=== PATIENT | male | born 1990 | race Caucasian/White ===

== ENCOUNTER 2020-08-23 04:21 | Emergency (ER) | payer OTHER ==
[~2020-08-23] VITALS: Ht 180.3 cm; Wt 81.2 kg
--- NOTE | 2020-08-23 04:34 | PHYS DOC ---
Past History Past Medical History: No Pertinent History Past Surgical History: No Surgical History Smoking: Cigarettes Alcohol Use: Rarely Adult General Chief Complaint Chief Complaint: CHEST PAIN HPI HPI Patient is a 29-year-old male who presents with chest pain. Onset was 1 hour prior to arrival and awoke patient from sleep. Patient reports focal substernal chest pain without radiation that was initially 8/10 in severity. Patient described pain as sharp. Nothing known makes better or worse. Patient has history of acid reflux and thought this might have been the cause, patient drank a glass of milk and took daily GERD medications without significant relief prompting him to visit our ER for evaluation. Patient has never had an episode of chest pain like this. Patient reports chest pain has significantly improved since onset and is only causing mild discomfort at present. 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 No fever, URI-like symptoms, hemoptysis, prolonged sedentary state, long distance travel or travel to exotic places, no animal or insect bites known, no family history of cardiac abnormalities, patient does admit to daily cigarette abuse Review of Systems Review of Systems Fourteen body systems of review of systems have been reviewed. See HPI for pertinent positives and negative responses, other alexander all other systems are negative, non-pertinent or non-contributory Physical Exam Physical Exam Constitutional: Well developed, well nourished, no acute distress, non-toxic appearance. HENT: Normocephalic, atraumatic, bilateral external ears normal, oropharynx moist, no oral exudates, nose normal. Eyes: PERRLA, EOMI, conjunctiva normal, no discharge. Neck: Normal range of motion, no tenderness, supple, no stridor. Cardiovascular: Heart rate regular, sinus rhythm, no murmurs rubs or gallops, chest wall nontender to palpation Lungs & Thorax: Bilateral breath sounds clear to auscultation Abdomen: Bowel sounds normal, soft, no tenderness, no masses, no pulsatile masses. Nonsurgical abdomen, no peritoneal signs Skin: Warm, dry, no erythema, no rash. Back: No tenderness, no CVA tenderness. Extremities: No tenderness, no cyanosis, no clubbing, ROM intact, no edema. Neurologic: Alert and oriented X 3, grossly normal motor & sensory function, no focal deficits noted. Psychologic: Affect normal, judgement normal, mood normal. Current Patient Data Vital Signs Vital Signs Date Time Temp Pulse Resp B/P (MAP) Pulse Ox O2 Delivery O2 Flow Rate FiO2 08/23/20 04:28 97.4 78 16 134/67 (89) 99 Room Air Lab Results Laboratory Tests Test 08/23/20 04:33 White Blood Count 7.2 x10^3/uL (4.0-11.0) Red Blood Count 4.82 x10^6/uL (4.30-5.70) Hemoglobin 15.1 g/dL (13.0-17.5) Hematocrit 44.4 % (39.0-53.0) Mean Corpuscular Volume 92 fL (79-100) Mean Corpuscular Hemoglobin 31 pg (25-35) Mean Corpuscular Hemoglobin Concent 34 g/dL (31-37) Red Cell Distribution Width 12.7 % (11.5-14.5) Platelet Count 190 x10^3/uL (140-400) Neutrophils (%) (Auto) 44 % (31-73) Lymphocytes (%) (Auto) 41 % (24-48) Monocytes (%) (Auto) 10 % (0-9) Eosinophils (%) (Auto) 4 % (0-3) Basophils (%) (Auto) 1 % (0-3) Neutrophils # (Auto) 3.2 x10^3uL (1.8-7.7) Lymphocytes # (Auto) 3.0 x10^3/uL (1.0-4.8) Monocytes # (Auto) 0.7 x10^3/uL (0.0-1.1) Eosinophils # (Auto) 0.3 x10^3/uL (0.0-0.7) Basophils # (Auto) 0.1 x10^3/uL (0.0-0.2) Sodium Level 140 mmol/L (136-145) Potassium Level 3.8 mmol/L (3.5-5.1) Chloride Level 104 mmol/L (98-107) Carbon Dioxide Level 28 mmol/L (21-32) Anion Gap 8 (6-14) Blood Urea Nitrogen 17 mg/dL (8-26) Creatinine 1.0 mg/dL (0.7-1.3) Estimated GFR (Cockcroft-Gault) 89.6 Glucose Level 116 mg/dL (70-99) Calcium Level 8.9 mg/dL (8.5-10.1) Troponin I Quantitative < 0.017 ng/mL (0-0.055) Lipase 154 U/L (73-393) EKG EKG EKG ordered and interpreted by myself at 0429 hrs. as sinus rhythm at 79 bpm, unremarkable intervals, no axis deviation, no ischemic findings, no STEMI Radiology/Procedures Radiology/Procedures PROCEDURE: CHEST AP ONLY AP chest. HISTORY: Chest pain AP view was taken of the chest. Lungs are clear. Heart is normal in size. There is no effusion. IMPRESSION: 1. No acute chest disease. Electronically signed by: Bishop Diaz MD (08/23/2020 5:05 AM) [id number] Course & Med Decision Making Course & Med Decision Making Well-appearing ambulatory patient seen on immediate ER arrival ABCs nonconcerning Comprehensive history and physical exam obtained, subsequent diagnostic work-up ordered and reviewed Discussed most likely diagnosis of chest pain unspecified that is less likely cardiac in origin I did disclose this might be an acute presentation of more concerning pathology but given work-up history and physical exam, I have low suspicion for ACS, myocarditis/cardiomyopathy etc. Patient has PCP in local area, he is able to get in to be seen within upcoming 1 to 2 weeks for outpatient follow-up. I feel this is appropriate Continued supportive care advised with emphasis on eating appropriate foods that will decrease patient's chances of suffering from symptomatic GERD Strict return precautions were discussed with good understanding by patient, all questions and concerns addressed prior to ER departure home in stable condition Dragon Disclaimer Dragon Disclaimer This electronic medical record was generated, in whole or in part, using a voice recognition dictation system. The HEART Score for CP Pts HEART Score for Chest Pain: HEART Score for Chest Pain Response (Comments) Value History Moderately Suspicious 1 ECG Normal 0 Age < 45 0 Risk Factors 1 or 2 Risk Factors 1 Troponin < Normal Limit 0 Total 2 Risk Factors: Risk Factors: DM, Current or recent (<one month) smoker, HTN, HLP, family history of CAD, obesity. Risk Scores: Score 0 - 3: 2.5% MACE over next 6 weeks - Discharge Home Score 4 - 6: 20.3% MACE over next 6 weeks - Admit for Clinical Observation Score 7 - 10: 72.7% MACE over next 6 weeks - Early Invasive Strategies Departure Departure: Impression: Primary Impression: Chest pain, unspecified Disposition: 01 DC HOME SELF CARE/HOMELESS Condition: STABLE Referrals: PCP,UNKNOWN (PCP) Patient Instructions: Chest Pain (Nonspecific) LUCILLE HOUSTON DO Aug 23, 2020 04:34
[2020-08-23] MEDS ORDERED: ASPIRIN CHEWABLE 81 MG TABLET. PO ONE (04:45)
[2020-08-23 04:50] LABS: BASO # 0.1 x10^3/uL (0.0-0.2); BASO % 1 % (0-3); EOS # 0.3 x10^3/uL (0.0-0.7); EOS % 4 % (0-3); HEMATOCRIT 44.4 % (39.0-53.0); HEMOGLOBIN 15.1 g/dL (13.0-17.5); LYMPH % 41 % (24-48); MEAN CORPUSCULAR HEMOGLOBIN 31 pg (25-35); MEAN CORPUSCULAR HGB CONC 34 g/dL (31-37); MEAN CORPUSCULAR VOLUME 92 fL (79-100); MONO # 0.7 x10^3/uL (0.0-1.1); MONO % 10 % (0-9); NEUT # 3.2 x10^3uL (1.8-7.7); NEUT % 44 % (31-73); PLATELET COUNT 190 x10^3/uL (140-400); RED BLOOD COUNT 4.82 x10^6/uL (4.30-5.70); RED CELL DISTRIBUTION WIDTH 12.7 % (11.5-14.5); WHITE BLOOD COUNT 7.2 x10^3/uL (4.0-11.0)
[2020-08-23 04:58] LABS: CALCIUM 8.9 mg/dL (8.5-10.1); GFR 89.6; POTASSIUM 3.8 mmol/L (3.5-5.1)
--- NOTE | 2020-08-23 05:08 | RAD ---
AP chest. HISTORY: Chest pain AP view was taken of the chest. Lungs are clear. Heart is normal in size. There is no effusion. IMPRESSION: 1. No acute chest disease. Electronically signed by: Bishop Diaz MD (08/23/2020 5:05 AM) [id number]
[2020-08-23 05:30] VITALS: BP 120/63
--- NOTE | 2020-08-23 10:07 | EKG ---
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
== END 2020-08-23 05:35 | disposition home or self-care (01) ==
LOC: ER 04:21
DX: R07.2 Precordial pain (principal); F17.210 Nicotine dependence, cigarettes, uncomplicated
CPT/HCPCS: 36415; 71045; 80048; 83690; 84484; 85025; 93005; 99285

== ENCOUNTER 2021-03-10 07:53 | Emergency (ER) | payer OTHER ==
[~2021-03-10] VITALS: Ht 180.3 cm; Wt 81.8 kg
[2021-03-10 08:38] VITALS: BP 127/93
[2021-03-10] MEDS: CALCIUM CARBONATE 500 MG TABLET PO ONE (09:05)
--- NOTE | 2021-03-10 09:28 | PHYS DOC ---
Past History Past Medical History: No Pertinent History Past Surgical History: No Surgical History Smoking: Cigarettes Additional Smoking Information: 1 PPD Alcohol Use: Rarely Drug Use: None General Adult EDM: Chief Complaint: SKIN PROBLEM HPI: HPI: 30-year-old male presents with burning and redness around nail of his right index finger since last night. Patient does report exposure to chemical product called [employer]. Reports he was not wearing gloves and his sprayer was leaking onto his hand. [employer]am does contain hydrofluoric acid per his companies MSDS. Patient does report he had cleaned his hands was water after the exposure but last night his finger started to burn. This morning he noticed some swelling and redness to the nail. Denies any fever or chills. Denies taking any medication to help with the discomfort. Review of Systems: Review of Systems: Constitutional: Denies fever or chills Eyes: Denies redness or eye pain HENT: Denies nasal congestion or sore throat Respiratory: Denies cough or shortness of breath Cardiovascular: Denies chest pain or palpitations GI: Denies abdominal pain, nausea, or vomiting : Denies dysuria or hematuria Musculoskeletal: Denies back pain or joint pain Integument: Reports redness, burning sensation, and irritation surrounding right index fingernail Neurologic: Denies headache, focal weakness or sensory changes Complete systems were reviewed and found to be within normal limits, except as documented in this note. Current Medications: Current Meds: Current Medications Medications (Trade) Dose Ordered Sig/Carolyn Start Time Stop Time Status Last Admin Dose Admin Calcium Carbonate/ Glycine (Oscal) 2,000 mg 1X ONCE 03/10/21 09:00 03/10/21 09:01 DC 03/10/21 09:05 2,000 MG Allergies: Allergies: Allergies Coded Allergies Type Severity Reaction Last Updated Verified No Known Allergies Allergy Unknown 08/23/20 Yes Physical Exam: PE: Constitutional: Well developed, well nourished, no acute distress, non-toxic appearance HENT: Normocephalic, atraumatic Eyes: Conjunctiva normal, no discharge Neck: Normal range of motion, supple Lungs & Thorax: No respiratory distress, equal chest rise and fall Skin: Warm, dry, no erythema, no rash Extremities: Right index finger mild erythema around nail with tenderness on palpation without fluctuation, no deformity, ROM intact Neurologic: Alert and oriented X 3, no focal deficits noted Psychologic: Affect normal, judgment normal Current Patient Data: Labs: Laboratory Tests Test 03/10/21 08:37 Calcium Level 8.6 mg/dL (8.5-10.1) Vital Signs: Vital Signs Date Time Temp Pulse Resp B/P (MAP) Pulse Ox O2 Delivery O2 Flow Rate FiO2 03/10/21 08:38 98.1 79 16 127/93 (104) 99 Room Air EKG: EKG: [] Radiology/Procedures: Radiology/Procedures: [] Heart Score: C/O Chest Pain: N/A Course & Med Decision Making: Course & Med Decision Making Patient presents with HPI and physical exam consistent for exposure to hydrofluoric acid while at his place of employment. Reports exposure was at 1800 last night. Patient does report washing his hands in water but throughout the night experienced burning sensation. Patient now with redness and burning around right index finger nail. No fluctuance consistent for paronychia. Discussed case with poison control who recommended placement of calcium carbonate slurry and glove and to obtain a random calcium level. Patient's calcium within normal limits. Patient advised to continue placement of finger and slurry for up to 4 hours until pain has resolved. Patient stable for discharge with outpatient follow-up with PCP. Discussed findings and plan with patient and significant other, who acknowledge understanding and agreement. Osito Disclaimer: Osito Disclaimer: This electronic medical record was generated, in whole or in part, using a voice recognition dictation system. Departure Departure: Impression: Primary Impression: Accidental exposure to hydrofluoric acid Disposition: HOME / SELF CARE / HOMELESS Condition: STABLE Referrals: MICHAEL SHEA (PCP) Patient Instructions: Chemical Burn, [id number] Additional Instructions: May also use over the counter Tylenol and/or Ibuprofen for pain or discomfort. Continue use of calcium slurry until pain relief for up to 4 hours. STACIE DENNISON DO March 10, 2021 09:28
== END 2021-03-10 09:57 | disposition home or self-care (01) ==
LOC: ER 07:53
DX: T54.2X1A Toxic effect of corrosive acids and acid-like substances, accidental (unintentional), initial encounter (principal); R20.8 Other disturbances of skin sensation
CPT/HCPCS: 36415; 82310; 99283-25